=== PATIENT | male | born 2000 | race Caucasian/White ===

== ENCOUNTER 2024-06-10 22:27 | Emergency (ER) | payer OTHER, SELFPAY ==
[2024-06-10 22:33] VITALS: BP 133/93
--- NOTE | 2024-06-10 23:58 | ED.GENMED ---
History of Present Illness
<QUIQUE Dahl - Last Filed: 06/11/24 01:43>
General
Chief Complaint: Anxiety
Source: patient
Time Seen by Provider: 06/10/24 23:36
Nursing documentation reviewed up to this point in time: agreed with
History of Present Illness
History of Present Illness:
Pt is a 23 yo M who presents to the emergency department due to anxiety. Pt reports that he has had increased panic attacks and anxiety that began about 1 week ago. He explains that he had trouble to fall asleep a week ago, and the next day he got
anxious about being able to sleep or fall asleep. He states that each night since he has had severe anxiety during the night when thinking about trying to sleep and being able to sleep. He said since this past week some nights he will sleep a couple
hours and last night he slept 10 hours. He states that he has been taking 20mg of melatonin and it has not been helping him to sleep. He states that he has tried aromatherapy, and exercise without helping of sleep. He states that he saw his
therapist yesterday and that she recommended for him to taking melatonin. Pt states that he has had this happen before about a year ago but was able to calm himself down and did not seek medical help. He admits to associated palpations with his
anxiety.
He states his current medication is methylphenidate for ADHD, and that he did not take it today. Pt denies suicidal or homicidal ideations. He denies auditory or visual hallucinations.
Review of Systems
<QUIQUE Dahl - Last Filed: 06/11/24 01:43>
Review of Systems
Allergies reviewed?: Yes
Constitutional: Reports no symptoms
Respiratory: Reports no symptoms
Cardiac: Reports palpitations
ABD/GI: Reports no symptoms
: Reports no symptoms
Skin: Reports no symptoms
Neurological: Reports no symptoms
Psychiatric: Reports anxiety
Phy Exam
<QUIQUE Dahl - Last Filed: 06/11/24 01:43>
General Physical Exam
General Presentation: mild distress
General age: appears stated age
General Skin: warm
General Habitus: normal
General Mental: anxious
General Hydration: appears well hydrated
Cardiovascular Exam
Cardiovascular Exam: regular rate/rhythm
Pulmonary Exam
Pulmonary Exam: lungs clear
Neurological Exam
Neurological Exam: alert and oriented x3
Psychiatric Exam
Psychiatric Exam: anxious
Course
<QUIQUE Dahl - Last Filed: 06/11/24 01:43>
Orders/Labs/Results
Orders:
Orders
06/11/24 00:03
Lorazepam [Ativan] 1 mg PO NOW STA
06/11/24 00:49
Crisis Consult Urgent
Reason for Consult: extreme anxiety, no SI
Vital Signs
Initial and Last Documented VS:
Initial Vital Signs
Temp Pulse Resp BP Pulse Ox
98.2 F 86 20 133/93 99
06/10/24 22:33 06/10/24 22:33 06/10/24 22:33 06/10/24 22:33 06/10/24 22:33
Last Documented Vital Signs
Temp Pulse Resp BP Pulse Ox
98.2 F 93 18 139/76 96
06/10/24 22:33 06/11/24 01:41 06/11/24 01:41 06/11/24 01:41 06/11/24 01:41
<Yfn Mcghee DO - Last Filed: 06/11/24 01:43>
Orders/Labs/Results
Orders:
Orders
06/11/24 00:03
Lorazepam [Ativan] 1 mg PO NOW STA
06/11/24 00:49
Crisis Consult Urgent
Reason for Consult: extreme anxiety, no SI
Vital Signs
Initial and Last Documented VS:
Initial Vital Signs
Temp Pulse Resp BP Pulse Ox
98.2 F 86 20 133/93 99
06/10/24 22:33 06/10/24 22:33 06/10/24 22:33 06/10/24 22:33 06/10/24 22:33
Last Documented Vital Signs
Temp Pulse Resp BP Pulse Ox
98.2 F 93 18 139/76 96
06/10/24 22:33 06/11/24 01:41 06/11/24 01:41 06/11/24 01:41 06/11/24 01:41
<QUIQUE Dahl - Last Filed: 06/11/24 01:43>
MDM/Problems Addressed
Differential Diagnosis Includes:
Anxiety, insomnia
<QUIQUE Dahl - Last Filed: 06/11/24 01:43>
*Critical Care Note
Total Time (30-74mins, 75-104mins- exclusive of procedures): Not Applicable
<QUIQUE Dahl - Last Filed: 06/11/24 01:43>
Update Note
Update Note:
Pt given resources for crisis and outpatient support
ED Attending Note
<QUIQUE Dahl - Last Filed: 06/11/24 01:43>
-
Portions of this chart may have been created with voice recognition software.� Occasional wrong word or��sound alike� substitutions may have occurred due to the inherent limitations of voice recognition software.
<Yfn Mcghee DO - Last Filed: 06/11/24 01:43>
ED Attending Note
Patient seen and examined by attending physician: Yes
I performed the substantive portion of visit, reviewed & personally made and approve the management plan that is documented in note by myself or KRISTINA.: Yes
ED Attending Note:
This a pleasant 23-year-old male presents to the emergency department due to anxiety. He states that he has had panic attacks and anxiety that began approximately 1 week ago. He has been unable to sleep through a complete night. He states that he
has tried different medications without any success. He denies suicidal or homicidal ideation, intent, or plan. He denies any visual or audio hallucinations. He does follow-up with a therapist and it was recommended that he take melatonin. He
tried that without success. Patient states that this has happened to him in the past. Patient was seen in conjunction with the PA student. I have reviewed and agree with the history and treatment plan presented. On my independent physical exam,
patient is awake, alert, and oriented x3 minimal to moderate acute distress pacing around the room. No respiratory distress. Skin is warm and dry. Moves all 4 extremities. He has anxious affect. He has pressured speech.
Crisis consulted for evaluation.
Discharge Plan
Departure
Patient Disposition: Home (Routine Discharge)
Date of Disposition: 06/11/24
Time of Disposition: 01:40
Patient with high blood pressure during this ER visit?: Yes
Condition: Good
Discharge Problem:
Anxiety
Instructions: Anxiety, Adult (DC), BLOOD PRESSURE
Prescriptions:
New
lorazepam [Ativan] 0.5 mg tablet
0.5 mg PO TID PRN (Reason: anxiety) Qty: 7 0RF
Referrals:
Khai Call MD [Family Provider] -
Jeniffer Sadler [Active] -
Activity Restrictions/Additional Instructions:
You were given resources by the correctional program specialist. Please follow-up as directed.
It was a pleasure meeting you and taking part in your care. We hope for your continued healing and wellness.
Please read discharge instructions in their entirety. However, they are for general education and may not describe your exact diagnosis at discharge. Information on your ER visit and medical conditions were discussed with you along with appropriate
follow up information...
If indicated, please take your medications as instructed and indicated on discharge paperwork.
Please schedule a follow up appointment as directed. Call to schedule an appointment
Please return to the emergency department with ANY change in, persisting, or worsening of symptoms. If any of your symptoms do not improve, or persist, or become more severe within 6-12 hours, please return to the emergency department for further
care.
Please return to the emergency department if you develop a headache, neck pain/stiffness, fever greater than 100.4F, chest pain, shortness of breath, persistent nausea, vomiting, slurred speech, difficulty walking, numbness/tingling, weakness, signs
of infection or any other symptoms that are worrisome to you.
If you have any questions or concerns please do not hesitate to call the Hospital at .
Interventions
Interventions:
*Risk Screen - Suicide Last Done: 06/10/24 22:33
*General Assessment Last Done: 06/10/24 22:33
*Neglect/Abuse Screening Last Done: 06/10/24 22:33
*ED COVID-19 Vaccine History Last Done: 06/10/24 22:33
ED-Psychological Assessment Last Done: 06/11/24 00:12
Discharge Date and Time
Print Language: SAMI
[2024-06-11] MEDS: ATIVAN 1 MG PO (00:08)
[2024-06-11 01:41] VITALS: BP 139/76
== END 2024-06-11 01:46 | disposition home or self-care (01) ==
LOC: EMR 22:27
PROVIDERS: EMERGENCY PHYSICIAN Student in an Organized Health Care Education/Training Program; FAMILY PHYSICIAN Family Medicine
DX: F41.9 Anxiety disorder, unspecified (principal); R03.0 Elevated blood-pressure reading, without diagnosis of hypertension
CPT/HCPCS: 99283